=== PATIENT | female | born 1970 ===

== ENCOUNTER 2023-06-01 10:55 | Day surgery (SDC) | payer OTHER ==
[~2023-06-01] VITALS: Ht 154.9 cm; Wt 59.9 kg
[~2023-06-01 10:55] MED LIST: ZYRTEC10 M3 PO
== END 2023-06-01 20:00 | disposition home or self-care (01) ==
LOC: CIR.AMB 10:55
PROVIDERS: ATTEND Obstetrics & Gynecology
DX: N93.8 Other specified abnormal uterine and vaginal bleeding (principal); N84.0 Polyp of corpus uteri; Z20.822 Contact with and (suspected) exposure to COVID-19